=== PATIENT | female | born 1945 | race Caucasian/White ===

== ENCOUNTER 2016-12-13 20:13 | Emergency (ER) | payer MEDICARE ==
[~2016-12-13] VITALS: Ht 167.6 cm; Wt 86.4 kg
--- NOTE | 2016-12-13 20:13 | ED.REPORT ---
HPI-Neurologic Deficit Date of Service Dec 13, 2016 ED Provider: Dr. Jose Alejandro Leo 71 year old female with a history of left sided weakness and short term memory difficulty due to a CVA (September 2015) and brain aneurysm s/p shunt who presents to the ED via EMS with L sided facial droop noted today. Pt's reports that she had a fall yesterday where she landed face first on her forehead. Since then she had balance difficulties and then had another fall today. Pt complains of a mild headache, but denies neck pain. Nursing Notes Stated Complaint: LEFT SIDED WEAKNESS, GROUND LEVEL FALL Chief Complaint: Neuro Symptoms/ Deficits Nursing Notes Reviewed: Yes Allergies: Coded Allergies: Cephalosporins (Verified Allergy, Unknown, 08/21/09) Uncoded Allergies: CECLOR, SULFA (Allergy, Unknown, 04/05/04) Cephalosporins (Allergy, Unknown, 04/05/04) NKDA (Allergy, Unknown, 04/05/04) SULFA (Allergy, Unknown, 08/21/09) Sulfa (Allergy, Unknown, 04/05/04) General Time Seen by Provider: 20:11 Chief Complaint Falling Hx Obtained From: Patient, Spouse, EMS Arrived By: Ambulance Sudden in Onset?: No Onset Occurred: Yesterday Symptom Duration: Since onset Progression Since Onset: Constant Location: : Head Quality: Aching Severity: Current: Mild Associated with: Reports: Balance problem, Headache Related History: Reports: CVA/TIA Similar Sx Previous: Yes Risk Factors TPA Administration/Criteria Stroke Thrombolytic Therapy : TPA Considered: Yes Disc Risk/Benefit/Alternatives: Yes TPA Administered Intravenously: No, exclusion criteria Exclusion Criteria: Suspect subarachnoid hem NIH Stroke Scale Level of Consciousness: Alert and responsive (0) Ask Month & Age: Both questions right (0) Open/Close Eyes/Hand Atmospheric Physics Professor: Performs both tasks (0) Horizontal EO Movements: None (0) Visual Gordon: No visual loss (0) Facial Palsy: Minor paralysis (1) (to R side) Right Arm Motor Drift (10s): No drift 10 sec (0) Left Arm Motor Drift (10s): No drift 10 sec (0) Right Leg Motor Drift (5s): No drift 5 sec (0) Left Leg Motor Drift (5s): No drift 5 sec (0) Limb Ataxia FNF/Heel-Moncada: No ataxia (0) Sensation (Arms/Legs/Face): No sensory loss (0) Language Aphasia: No aphasia, normal (0) Dysarthria: No dysarthria, normal (0) Extinction/Inattention: No exctinct/inattent (0) NIHSS Score: 1 Time NIHSS Performed: 20:24 Date NIHSS Performed: Dec 13, 2016 Past Medical History Past Medical History Notes: PCP: Dr. Oneill Past Medical History nonalcoholic steatohepatitis vitamin D deficiency asthma Brain aneurysm Reports: Hyperlipidemia, Hypertension, Stroke Past Surgical History Brain aneurysm with catheterization Reports: Cholecystectomy, Hysterectomy, Tonsillectomy Smoking History Unknown if Ever Smoker Social History Other Social History: Good social support, , Local resident Ambulatory Status Walker Review of Systems Respiratory: Denies: Shortness of breath Cardiovascular: Denies: Chest pain Musculoskeletal: Denies: Extremity pain, Neck pain Neurologic: Reports: Focal weakness (baseline), Headache, Problem walking, Denies: Change LOC, Unable to speak Complete sys rev & neg: except as marked. Physical Exam Initial Vital Signs Vital Signs (First) Date Time Temp Pulse Resp B/P Pulse Ox O2 Delivery O2 Flow Rate FiO2 12/13/16 20:25 36.2 70 18 145/69 99 Room Air Initial VS: Reviewed ENT: Conjunctiva normal, No scleral icterus Neck: Full range of motion Skin: Warm, Dry General/Constitutional: Awake, Alert Head / Eyes: Atraumatic, Normocephalic, PERRL Respiratory / Chest: Breath sounds NL, Breath sounds = bilat, No respiratory distress, No rales, No rhonchi, No wheezing Cardiovascular: Heart rate NL, Regular rhythm, Heart sounds NL, Peripheral circulation NL Neurologic: Speech NL, No motor deficits, No sensory deficits Mental Status: Positive: Disoriented to place L sided facial droop Interpretation & Diagnostics Lab Results Interpretation Result Diagram: 12/13/16200912/13/162009 Test 12/13/16 20:10 White Blood Count 10.3th/mm3 (3.8-10.1) Red Blood Count 5.41mil/mm3 (3.90-5.20) Hemoglobin 15.8g/dL (12.0-15.6) Hematocrit 45.2% (35.0-46.0) Mean Corpuscular Volume 83.5fL (81-100) Mean Corpuscular Hemoglobin 29.2pg (27.0-35.0) Mean Corpuscular Hemoglobin Concent 35.0% (32.0-37.0) Red Cell Distribution Width 12.6% (12.3-15.4) Platelet Count 289bil/L (150-400) Neutrophils (%) (Auto) 54.4% (40-74) Lymphocytes (%) (Auto) 33.4% (14-46) Monocytes (%) (Auto) 10.5% (4-12) Eosinophils (%) (Auto) 1.1% (0-5) Basophils (%) (Auto) 0.4% (0-3) Prothrombin Time 9.8sec (8.1-12.5) Prothromb Time International Ratio 0.92ratio Activated Partial Thromboplast Time 25.7sec (22.8-33.0) Sodium Level 136mEq/L (134-144) Potassium Level 2.9mEq/L (3.5-5.2) Chloride Level 92mEq/L (97-108) Carbon Dioxide Level 30mmol/L (18-29) Blood Urea Nitrogen 15mg/dL (8-27) Creatinine 0.72mg/dL (0.57-1.00) Estimat Glomerular Filtration Rate 115mL/min (>59) Glucose Level 101mg/dL (60-99) Calcium Level 9.8mg/dL (8.5-10.1) Total Bilirubin 0.2mg/dL (0.0-1.2) Aspartate Amino Transf (AST/SGOT) 16U/L (0-50) Alanine Aminotransferase (ALT/SGPT) 18U/L (0-32) Alkaline Phosphatase 87U/L (25-165) Troponin T < 0.010ug/L (0.0-0.011) Total Protein 7.6g/dL (6.4-8.4) Albumin 4.8g/dL (3.4-5.0) Alcohol, Quantitative < 10mg/dL (0-10) General Lab Results Interp 1: Labs reviewed Pulse Oximetry Interpretation Pulse Oximetry: Pulse Ox normal (99), On room air ECG Interpretation Time: 20:23 Interpreted by: ED physician Normal ECG Interpretation: Normal rate (74), Normal sinus rhythm, No acute ischemic changes CT Head Interpretation 1. Serpiginous area of hyperdensity within the left frontal lobe is most consistent with subarachnoid hemorrhage. 2. Moderate atrophy and chronic microvascular ischemic changes, including a prominent area of old infarction in the right temporoparietal occipital lobe. Study: Head CT no contrast Interpretation / Wet Read by: Interpret - Radiologist CT C-Spine Interpretation Impression: Multilevel degenerative changes without visualized fracture. Study type: CT no contrast Interpretation / Wet Read by: Interpret - Radiologist Re-Eval/Medical Decision Med Decision/Clinical Course 71-year-old female presents as a code stroke. Evidently she suffered a ground- level fall after which she is found have a left facial droop. On my evaluation she is awake and alert. She has a history of dementia and her memory seemed to be at her baseline. Her corroborates this. She does have facial asymmetry with smiling. She has symmetric standard machine stitcher strength bilateral. She did not have a drift in any of her 4 extremities. She is able to recognize items off the stroke scale picture board. Her vitals have been and remained stable CT scan shows a traumatic subarachnoid hemorrhage. Laboratory work showed mild hypokalemia. He was due for her evening dose of Keppra. Medicated with IV fentanyl for the headache pain. Her cervical spine was cleared with CT and clinically. Case discussed with [facility] and she was transferred to [facility] in stable condition. Re-Evaluation/Progress #1: Time of Eval: 20:29 Re-Evaluation/Progress Note: Pt and her updated of imaging results. Discussed possible transfer to [facility]. Re-Evaluation/Progress #2: Time of Eval: 21:19 Re-Evaluation/Progress Note: Pt and family updated of plan for transfer. They understand and agree with plan. Consultation : Referral / Consult Name: Philomena Merrill MD Call Returned at: 20:25 Note: Radiologist- Called with CT results. Differential Diagnosis: Positive: Basilar skull fracture, Cerebrovascular accident, Cervical spine injury, Closed head injury, Intracranial hemorrhage, Skull fracture, Subarachnoid hemorrhage, Transient ischemic attack Severity: Serious condition Comorbidities: Anticoagulation therapy, Disability Counseled Regarding: Diagnosis, Need for transfer Discharge & Departure Impression: Primary Impression: Traumatic subarachnoid hemorrhage Encounter type: initial encounter Loss of consciousness presence/duration: without LOC Qualified Code: S06.6X0A - Traumatic subarachnoid hemorrhage without loss of consciousness, initial encounter Disposition: Transfer, Acute Care Facility Receiving Hospital: Dr. Schaefer from [facility] accepts patient Transfer Accepted: Yes Transfer Accepted at: 21:05 Transfer Reason: Higher level of care Spoke with: Attending physician Patient Status: Stabilized within capabil Patient Informed: Yes Discharge Condition All VS Reviewed: Yes Referrals: Sarahy Gramajo (PCP) Crit Care Except Billable Proc Time Spent: 30-74 minutes Services Performed: Patient management by me, Time spent at bedside, Reviewing test results, Reviewing imaging, Discussing patient care, Documentation in record, Time with fam/surrogate Scribe Attestation Portions of this note were transcribed by Adriana Greenfield. I, (Dr. Leo) personally performed the history, physical exam and medical decision-making; I reviewed and confirmed the accuracy of the information in the transcribed note. Signed by: Adriana Greenfield. Chung, 12/13/16, [id number] copies to: Sarahy Gramajo Todd P DO Dec 13, 2016 20:13 Adriana Greenfield Dec 13, 2016 20:32
[2016-12-13 20:24] LABS: BASOPHILS % (AUTO) 0.4 % (0-3); EOSINOPHILS % (AUTO) 1.1 % (0-5); MONOCYTES % (AUTO) 10.5 % (4-12); Mean Corpuscular Hemoglobin 29.2 pg (27.0-35.0); Mean Corpuscular Volume 83.5 fL (81-100); NEUTROPHILS % (AUTO) 54.4 % (40-74); Platelet Count 289 bil/L (150-400)
[2016-12-13 20:25] VITALS: BP 145/69; PULSE 70; RESP 18; O2SAT 99
[2016-12-13 20:42] LABS: INR 0.92 ratio
[2016-12-13 20:47] LABS: TROPONIN T < 0.010 ug/L (0.0-0.011)
[2016-12-13] MEDS ORDERED: levETIRAcetam 500 mg Tablet PO ONE (21:20)
[2016-12-13] MEDS ORDERED: Potassium Chloride 20 mEq SR Tablet PO ONE (21:20)
[2016-12-13] MEDS ORDERED: fentaNYL-PF 50 mCg/mL 2 mL Inj IVPUSH ONE (21:25)
[2016-12-13] MEDS ORDERED: Ondansetron 2 mg/mL 2 mL Inj IVPUSH PRN (21:25)
[2016-12-13 21:44] VITALS: BP 147/58; PULSE 70; RESP 18; O2SAT 99
--- NOTE | 2016-12-14 15:13 | DRSVH ---
PROCEDURE: CT BRAIN TPA INDICATIONS: Left sided weakness TECHNIQUE: Noncontrast 4.5 mm thick angled axial sections acquired from the foramen magnum to the vertex, with c oronal reformats. COMPARISON: [facility], CT, CT BRAIN WO CON, 02/15/2016, 20:55. FINDINGS: Image quality: Excellent. CSF spaces: Basal cisterns are patent. No extra-axial fluid collections. The ventricles are symmet adis in size and shape. Ventricular shunt is present from a posterior left frontal parietal approach with distal tip in the posterior aspect of the left ventricular frontal horn. Brain: No intracranial masses. There is a serpiginous area of hyperdensity within the left frontal l obe measuring roughly 9 mm in transverse dimension. There is cerebral volume loss for age, with resul tant ventricular and sulcal prominence. There are periventricular and deep white matter chronic smal l vessel ischemic changes. There is intracranial internal carotid artery atherosclerosis. There is a large area of old ischemia within the right temporoparietal occipital lobe. Skull and face: Calvarium and visualized facial bones appear intact, without suspicious lesions. Sinuses: Visualized sinuses demonstrate complete occlusion of the right maxillary sinus with promine nt mucosal thickening in the left maxillary and ethmoid sinuses. IMPRESSION: 1. Serpiginous area of hyperdensity within the left frontal lobe is most consistent with subarachnoid hemorrhage. 2. Moderate atrophy and chronic microvascular ischemic changes, including a prominent area of old inf arction in the right temporoparietal occipital lobe. The above findings were discussed with Dr. Jose Alejandro Leo on 12/13/16 at 8:22 PM. This study fulfills neurological imaging criteria for inclusion or exclusion of acute stroke therapie s based on available published neurological guidelines. Dictated by: Philomena Merrill M.D. on 12/13/2016 at 20:21 Approved by: Philomena Merrill M.D. on 12/13/2016 at 20:27
--- NOTE | 2016-12-14 15:13 | DRSVH ---
PROCEDURE: CT CERVICAL SPINE WITHOUT CONTRAST ([id number]) INDICATIONS: FALL TECHNIQUE: Noncontrast 3 mm thick sections acquired from the skull base to the T4 level. Sagittal and coronal r eformats were then constructed. For radiation dose reduction, the following was used: automated exp osure control, adjustment of mA and/or kV according to patient size. COMPARISON: None. FINDINGS: Image quality: Excellent. Bones: No fractures or dislocations. Visualized superior ribs are intact. Multilevel degenerative changes are present. Soft tissues: Prevertebral soft tissues are normal in thickness. No paravertebral hematomas. No ap ical pneumothoraces. Large right tempoparietal occipital focus of chronic infarction. IMPRESSION: Multilevel degenerative changes without visualized fracture. Dictated by: Philomena Merrill M.D. on 12/13/2016 at 21:01 Approved by: Philomena Merrill M.D. on 12/13/2016 at 21:03
--- NOTE | 2016-12-14 15:13 | DRSVH ---
PROCEDURE: X-RAY CHEST ONE VIEW, PORTABLE ([id number]) INDICATIONS: left sided weakness TECHNIQUE: One view of the chest was acquired. COMPARISON: [facility], CR, XR CHEST 1VW (PORTABLE), 10/20/2015, 16:51. FINDINGS: Surgical changes and devices: Partially visualized presumed left ventricular peritoneal shunt is note d with tubing coursing over the left neck, left hemithorax and into the left abdomen. Lungs and pleura: No pleural effusions or pneumothorax. Lungs are clear. Mediastinum: Mediastinal contours appear normal. Heart size is normal. Bones and chest wall: No suspicious bony lesions. Overlying soft tissues appear unremarkable. IMPRESSION: No acute pulmonary process. Dictated by: Philomena Merrill M.D. on 12/13/2016 at 20:47 Approved by: Philomena Merrill M.D. on 12/13/2016 at 20:48
== END 2016-12-13 21:46 | disposition short-term general hospital (02) ==
LOC: SED 20:13
DX: S06.6X0A Traumatic subarachnoid hemorrhage without loss of consciousness, initial encounter (principal); W18.39XA Other fall on same level, initial encounter; Y93.89 Activity, other specified; Y92.89 Other specified places as the place of occurrence of the external cause; Y99.8 Other external cause status; E87.6 Hypokalemia; I69.998 Other sequelae following unspecified cerebrovascular disease; R41.3 Other amnesia; J45.909 Unspecified asthma, uncomplicated; I10 Essential (primary) hypertension; E78.5 Hyperlipidemia, unspecified; Z98.2 Presence of cerebrospinal fluid drainage device; Z88.1 Allergy status to other antibiotic agents
CPT/HCPCS: 36415; 70450; 71010; 72125; 80053; 84484; 85025; 85610; 85730; 93005; 96374; 96375; 99291; G0480; J2405; J3010

== ENCOUNTER 2017-01-06 12:34 | Observation (INO) | payer MEDICARE ==
[~2017-01-06] VITALS: Ht 165.1 cm; Wt 85.8 kg
--- NOTE | 2017-01-06 12:27 | ED.REPORT ---
HPI-Stroke / CVA Jan 06, 2017 ED Provider: The patient is a 71 year old female with history of hypertension, hyperlipidemia , brain aneurysm s/p catheterization, right MCA stroke, and recent traumatic subarachnoid hemorrhage, who presents to the emergency department by EMS for left-sided weakness that began at [id number] this morning. The patient states she was washing her face when she noticed numbness/tingling to the left side of her body. She thought she was going to fall to the ground but she was able to lower herself to the ground. Her states when he found her she was shaking, weak on the left side, and was totally unresponsive. When medics arrived they noticed the patient had diffuse left-sided weakness. Her symptoms have improved since onset. Her states she was hospitalized at [facility] for a subarachnoid hemorrhage in September 2015. From our records she was seen here on December 13 and transferred to [facility] for a traumatic subarachnoid hemorrhage. Her states she has mild left-sided weakness at baseline. She is not on any blood thinners. She was recently weened off of her seizure medication (Keppra). Her last dose was a few days ago. Nursing Notes Stated Complaint: R/O CVA Nursing Notes Reviewed: Yes Allergies: Coded Allergies: Cephalosporins (Verified Allergy, Unknown, 08/21/09) Uncoded Allergies: CECLOR, SULFA (Allergy, Unknown, 04/05/04) Sulfa (Allergy, Unknown, 04/05/04) General Time Seen by Provider: 12:42 Chief Complaint Weakness, Numbness Left-sided Hx Obtained From: Patient, Spouse, Other family..., EMS Arrived By: Ambulance Time last known well Prior to 1135 this morning Sudden in Onset?: Yes Symptom Duration: Since onset Progression Since Onset: Constant, Gradually improving Severity: Current: No pain currently Severity: Maximum: No pain Pertinent Negative: Pt denies other symptoms Recent Healthcare: Recent doctor visit, Recent hospitalization Similar Sx Previous: Yes Risk Factors )( TPA Administration/Criteria Stroke Thrombolytic Therapy : TPA Considered: Yes TPA Administered Intravenously: No, exclusion criteria Exclusion Criteria: Sig head trauma / 90 days NIH Stroke Scale Level of Consciousness: Alert and responsive (0) Ask Month & Age: Both questions right (0) Open/Close Eyes/Hand Recreation Counselor: Performs both tasks (0) Horizontal EO Movements: None (0) Visual Gordon: No visual loss (0) Facial Palsy: Minor paralysis (1) (very subtle right-sided facial droop at the corner of her mouth, reports this is baseline) Right Arm Motor Drift (10s): No drift 10 sec (0) Left Arm Motor Drift (10s): No drift 10 sec (0) Right Leg Motor Drift (5s): No drift 5 sec (0) Left Leg Motor Drift (5s): Drift, not touch bed (1) Limb Ataxia FNF/Heel-Moncada: Ataxia in 1 limb (1) Sensation (Arms/Legs/Face): No sensory loss (0) Language Aphasia: No aphasia, normal (0) Dysarthria: No dysarthria, normal (0) Extinction/Inattention: No exctinct/inattent (0) NIHSS Score: 3 Time NIHSS Performed: 12:44 Date NIHSS Performed: Jan 06, 2017 Past Medical History Past Medical History Notes: PCP: Dr. Oneill Past Medical History Nonalcoholic steatohepatitis Vitamin D deficiency Asthma Brain aneurysm Traumatic subarachnoid hemorrhage Reports: Hyperlipidemia, Hypertension, Stroke Past Surgical History Brain aneurysm with catheterization Reports: Cholecystectomy, Hysterectomy, Tonsillectomy Family History Noncontributory Smoking History Unknown if Ever Smoker Social History Other Social History: Good social support, , Local resident Ambulatory Status Walker Review of Systems Neurologic: Reports: Change LOC, Focal weakness, Numbness, Problem walking, Shaking, Unable to speak, Weakness Complete sys rev & neg: except as marked. Physical Exam Initial Vital Signs Vital Signs (First) Date Time Temp Pulse Resp B/P Pulse Ox O2 Delivery O2 Flow Rate FiO2 01/06/17 12:50 36.2 106 13 172/78 97 Room Air Initial VS: Reviewed ENT: Mucous membranes moist, Conjunctiva normal, No scleral icterus Abdomen / GI: Soft, Non-tender, No guarding, No rebound, No distention Lymphatic: No lymphadenopathy Extremities: Vascular intact, Neuro intact, No swelling, No tenderness Skin: Warm, Dry, No cyanosis Psychiatric: Mood/affect normal, Behavior normal, Normal thought content General/Constitutional: Awake, Alert, Cooperative Head / Eyes: Atraumatic, Normocephalic, PERRL, EOMI Neck: Atraumatic, Supple, Full range of motion, No swelling, Non-tender, No midline vertebral tend, No carotid bruit Respiratory / Chest: Atraumatic, Breath sounds NL, Breath sounds = bilat, No respiratory distress, No rales, No rhonchi, No wheezing Cardiovascular: Heart rate NL, Regular rhythm, Heart sounds NL, No murmurs, No rubs, Peripheral circulation NL Neurologic: Oriented X3, Speech NL LLE: 4/5 hip flexion ,4/5 dorsiflexion. Entire RLE has 5/5 strength. 5/5 strength to both upper extremities. Very subtle right-sided facial droop at the corner of the mouth but her states this is baseline for her. Otherwise CNII-XII are intact. Dysmetria with finger to nose on the left. Left-sided pronator drift. Interpretation & Diagnostics Lab Results Interpretation Result Diagram: 01/06/17 1225 01/06/17 1225 Test 01/06/17 12:25 White Blood Count 6.7th/mm3 (3.8-10.1) Red Blood Count 5.45mil/mm3 (3.90-5.20) Hemoglobin 15.8g/dL (12.0-15.6) Hematocrit 45.2% (35.0-46.0) Mean Corpuscular Volume 82.9fL (81-100) Mean Corpuscular Hemoglobin 29.0pg (27.0-35.0) Mean Corpuscular Hemoglobin Concent 35.0% (32.0-37.0) Red Cell Distribution Width 12.7% (12.3-15.4) Platelet Count 347bil/L (150-400) Neutrophils (%) (Auto) 53.3% (40-74) Lymphocytes (%) (Auto) 35.4% (14-46) Monocytes (%) (Auto) 9.4% (4-12) Eosinophils (%) (Auto) 1.0% (0-5) Basophils (%) (Auto) 0.6% (0-3) Prothrombin Time 10.0sec (8.1-12.5) Prothromb Time International Ratio 0.94ratio Activated Partial Thromboplast Time 24.3sec (22.8-33.0) Sodium Level 141mEq/L (134-144) Potassium Level 2.7mEq/L (3.5-5.2) Chloride Level 94mEq/L (97-108) Carbon Dioxide Level 20mmol/L (18-29) Blood Urea Nitrogen 9mg/dL (8-27) Creatinine 0.76mg/dL (0.57-1.00) Estimat Glomerular Filtration Rate 108mL/min (>59) Glucose Level 113mg/dL (60-99) Calcium Level 10.0mg/dL (8.5-10.1) Total Bilirubin 0.3mg/dL (0.0-1.2) Aspartate Amino Transf (AST/SGOT) 18U/L (0-50) Alanine Aminotransferase (ALT/SGPT) 19U/L (0-32) Alkaline Phosphatase 134U/L (25-165) Troponin T < 0.010ug/L (0.0-0.011) Total Protein 7.8g/dL (6.4-8.4) Albumin 4.7g/dL (3.4-5.0) CT Head Interpretation IMPRESSION: 1. No acute intracranial abnormalities status post right aneurysm clipping. 2. Large nonacute infarct in the right posterior cerebral artery distribution as before. 3. Mild periventricular and deep white matter chronic small vessel ischemic change. 4. Findings consistent with right maxillary sinusitis, with central hyperdensity consistent with inspissated secretions versus fungal sinusitis. Findings were discussed with Dr. Tai at 1255 hrs on January 06, 2017. This study fulfills neurological imaging criteria for inclusion or exclusion of acute stroke therapies based on available published neurological guidelines. Dictated by: Juan Lamb M.D. on 01/06/2017 at 12:49 Study: Head CT no contrast Interpretation / Wet Read by: Interpret - Radiologist, Discussed w radiologist Re-Eval/Medical Decision Med Decision/Clinical Course The patient is a 71-year-old female with history of right MCA stroke and residual left-sided deficits, rheumatic subarachnoid hemorrhage and underlying seizure disorder for which she has recently been weaned off of Keppra who presents to the emergency department with acute onset of left-sided weakness in the setting of seizure-like episode. Here in the emergency department the patient is mentating normally and speaking in full sentences. Examination reveals a very subtle left sided weakness and pronator drift which the patient' s states is baseline. He states that the patient near complete recovery from her left-sided weakness that occurred after what appeared to be total body shaking/seizure during which she was non-responsive. She has not stuck her head. CT scan was obtained as above and demonstrated no acute intracranial hemorrhage but previous right MCA stroke/changes consistent with previous craniotomy were observed. LABS: CBC unremarkable, CMP notable for hypokalemia with a K of 2.7, otherwise unremarkable, glucose 113, troponin negative, coag studies WNL Pt treated with IV and oral potassium given significant hypokalemia as above. Additionally, the patient was loaded on 1000 mg of IV Keppra given presumed seizure event. Cannot definitively rule out acute ischemic stroke at this time however the onset and association with seizure and rapid resolution of symptoms is less suggestive of an acute ischemic process. MRI has been ordered to definitively assess for acute ischemic stroke. Regardless, the patient is not a candidate for TPA given her history of intracranial hemorrhage and rapidly resolving symptoms. Patient without fever or meningismus and my suspicion for meningitis/colitis is very low. We are cleaning the patient's Lexxel and abnormalities however I find it unlikely that these would explain her presentation today. Patient discussed with neurology and they are in agreement with plan for loading with Keppra and MRI. Patient was discussed with the admitting hospitalist and transferred in stable condition for further workup and management. Source of Hx: Old records, EMS Re-Evaluation/Progress : Time of Eval: 13:10 Re-Evaluation/Progress Note: Discussed plan for admission. All questions were addressed. Consultation #1: Referral / Consult Name: Hugo Calvert Consulted With: Hospitalist Call Returned at: 13:21 C 13 Catapult Operator: Will see patient, Agrees with eval, Agrees with plan, Accepts admit Consultation #2: Referral / Consult Name: Bhargavi Stanley MD Consulted With: Neurology Call Returned at: 13:26 C 13 Catapult Operator: Will see patient, Agrees with eval, Agrees with plan Counseled Regarding: Diagnosis, Lab results, Need for admission Patient Discharge & Departure Impression: Primary Impression: Seizure Additional Impressions: Left-sided weakness History of right MCA stroke History of subarachnoid hemorrhage History of craniotomy Hypokalemia Disposition: ADMITTED TO HOSPITAL Discharge Condition All VS Reviewed: Yes Condition: Stable Referrals: Didier Doss MD (PCP) Crit Care Except Billable Proc Time Spent: 105-134 minutes Services Performed: Patient management by me, Time spent at bedside, Reviewing test results, Reviewing imaging, Discussing patient care, Documentation in record Scribe Attestation Portions of this note were transcribed by Michelle Wood. I, Dr. Tai personally performed the history, physical exam and medical decision-making; I reviewed and confirmed the accuracy of the information in the transcribed note. Signed by: Chung Storey, 01/06/2017 at 1400. copies to: Didier Doss MD, Beck O MD Jan 06, 2017 12:27 Michelle Wood Jan 06, 2017 12:32
[2017-01-06 12:47] LABS: BASOPHILS % (AUTO) 0.6 % (0-3); MONOCYTES % (AUTO) 9.4 % (4-12); Mean Corpuscular Volume 82.9 fL (81-100); NEUTROPHILS % (AUTO) 53.3 % (40-74); Platelet Count 347 bil/L (150-400)
[2017-01-06 12:50] VITALS: BP 172/78; PULSE 106; RESP 13; O2SAT 97
[2017-01-06] MEDS ORDERED: levETIRAcetam Inj 1,000 MG in IV Premix 1 EACH IV ONE (12:55)
--- NOTE | 2017-01-06 12:57 | DRSVH ---
PROCEDURE: CT BRAIN (TPA) ([id number]) INDICATIONS: 71 year-old female with slurred speech, recent brain surgery. TECHNIQUE: Noncontrast 4.5 mm thick angled axial sections acquired from the foramen magnum to the vertex, with c oronal reformats. COMPARISON: [facility], CT, CT BRAIN TPA, 12/13/2016, 20:17. [facility], CT, CT BRAIN WO CON, 02/15/2016, 20:55. [facility], CT, BRAIN (TPA), 10/20/2015, 16:10. FINDINGS: Image quality: Excellent. CSF spaces: Basal cisterns are patent. No extra-axial fluid collections. The ventricles are symmet adsi in size and shape. Right parietal lobe ventricular shunt is again noted, with tip within the left lateral ventricle body as before. Brain: No intracranial bleeds or masses. Large nonacute right occipital and medial right temporal lo be infarct is again noted. Patient is status post right aneurysm clipping in the medial right sylvian fissure. There are mild periventricular and deep white matter chronic small vessel ischemic changes. There is intracranial internal carotid artery atherosclerosis. Skull and face: Patient is status post right frontal and parietal craniotomy as before. Visualized fa cial bones appear intact, without suspicious lesions. Sinuses: There is persistent heterogeneous opacification of the right maxillary sinus, with internal hyperdensity. There is patchy right ethmoid air cell fluid. Other visualized sinuses and mastoids edison ear clear. IMPRESSION: 1. No acute intracranial abnormalities status post right aneurysm clipping. 2. Large nonacute infarct in the right posterior cerebral artery distribution as before. 3. Mild periventricular and deep white matter chronic small vessel ischemic change. 4. Findings consistent with right maxillary sinusitis, with central hyperdensity consistent with insp issated secretions versus fungal sinusitis. Findings were discussed with Dr. Tai at 1255 hrs on January 06, 2017. This study fulfills neurological imaging criteria for inclusion or exclusion of acute stroke therapie s based on available published neurological guidelines. Dictated by: Juan Lamb M.D. on 01/06/2017 at 12:49 Approved by: Juan Lamb M.D. on 01/06/2017 at 12:56
[2017-01-06 13:04] VITALS: BP 136/60; PULSE 98; RESP 18; O2SAT 94
[2017-01-06 13:08] LABS: INR 0.94 ratio
[2017-01-06 13:17] LABS: TROPONIN T < 0.010 ug/L (0.0-0.011)
[2017-01-06] MEDS ORDERED: Alum-Mag Hydrox-Simeth 30 mL Suspension PO PRN ×2 (13:25→14:55)
[2017-01-06] MEDS ORDERED: Ondansetron 2 mg/mL 2 mL Inj IVPUSH PRN (13:25)
[2017-01-06] MEDS ORDERED: Potassium Chloride 20 mEq SR Tablet PO ONE (13:35)
[2017-01-06] MEDS ORDERED: LORazepam 0.5 mg Tablet PO ONE (14:00)
--- NOTE | 2017-01-06 14:22 | NUR ---
Evaluation completed. Please go to "Notes" then click on "Assessments and Notes" (bottom left corner of screen). Then select appropriate discipline tab on top of screen.
[2017-01-06] MEDS ORDERED: Ondansetron 2 mg/mL 2 mL Inj IV PRN (14:55)
[2017-01-06] MEDS ORDERED: Polyethylene Glycol (PEG) 17 Gm Powder PO PRN (14:55)
[2017-01-06] MEDS ORDERED: POTA10CA42 PO (15:15)
[2017-01-06] MEDS ORDERED: HYG25 PO (15:15)
[2017-01-06] MEDS ORDERED: AMLO5TAB2 PO (15:15)
[2017-01-06] MEDS ORDERED: ACET-171 PO (15:15)
[2017-01-06] MEDS ORDERED: NORT10CA PO (15:15)
[2017-01-06] MEDS ORDERED: FLUO10CA20 PO (15:15)
[2017-01-06] MEDS: Potassium Chloride Inj 40 MEQ in Dextrose 5% 250 ML IV ONE ×2 (15:26→19:36)
--- NOTE | 2017-01-06 15:30 | PCM.HPMED ---
Subjective Date of Service Jan 06, 2017 Primary Provider: Admitting Physician: Hugo Calvert Primary Care Physician: Didier Doss MD Attending Physician: Hugo Calvert Admit Status: From the Emergency Department Chief Complaint: "tingling at the top of my head" History of Present Illness: Ms. Jessy Weston is a 71-year-old female with history of hypertension, hyperlipidemia, brain aneurysm status post catheterization and right MCA ischemic stroke, and traumatic subarachnoid hemorrhage who presented to the emergency department via EMS after she felt tingling on the top of her head and her witnessed her having a "seizure." Patient states that this morning after she brushed her teeth and washed her face she could feel a tingling on the top of her head, which is exactly what happened prior to her fall 3 weeks ago, so she decided to lower herself to the floor in order to avoid falling a second time. The next thing that she remembers is waking up to her saying her name and seeing the [employer] supervisor in the ambulance. She also states that last night her left calf was cramping and she describes it as her left leg swelling and being "hard" and feeling "like something pushes against my muscle. " Prior to her fall 3 weeks ago, she said she felt the pain in her leg as well. Her states that he had been in to find the patient on the ground with her eyes rolled back, her whole body was shaking, and she was unresponsive. She did not have bowel or bladder incontinence. She did not hit her head. He reports that the patient has not had a seizure before. She was started on anti-epileptic medication to prevent her having seizures after the initial brain aneurysm and ischemic stroke. She started weaning off of Keppra and took her last dose on Thursday. She reports urinary frequency and depression and anxiety. She reports since the initial brain aneurysm that she cries easily. She does not have headache, dizziness, changes in her vision, dysphagia, chest pain, shortness of breath, cough, nausea, vomiting, abdominal pain, dysuria, diarrhea, constipation, or hematochezia or melena. In September 2015, she collapsed and was unresponsive, and she ended up going to [facility]. She had a brain aneurysm. Her reports that when she was in surgery for the brain aneurysm the surgeon had clipped the artery beneath the bleeding artery, which caused the ischemic right-sided stroke. She was then in the intensive care unit for 5 weeks, and then stayed in a care facility for 5 months for continued rehabilitation. The patient's baseline is walking with a walker, mild left sided weakness, and being partially blind. She has lost her left visual field completely and spots of her right visual field. Since the initial brain aneurysm and stroke, she has had one TIA. Three weeks ago, she fell and hit her head face first off of the wall. She came here to the emergency department where a minor subarachnoid hemorrhage was visualized, and she was sent to [facility]. She was there for a few days where they monitored the hemorrhage, but she did not undergo any intervention. In the emergency department, CT scan showed no acute intracranial changes. She is not a candidate for TPA because of her head trauma within the last 90 days. Her NIH stroke scale score was 3. She was given a loading dose of 1000 mg of IV Keppra. Her potassium was low at 2.7. She was given 10 mEq of potassium chloride IV. Dr. Stanley was consulted. Review of Systems: A comprehensive review of systems was conducted with the patient and found to be negative except as above in the History of Present Illness. Allergies Coded Allergies: Sulfa (Sulfonamide Antibiotics) (Verified Allergy, Severe, Rash,Itching,, 01/06/17) atenolol (Verified Allergy, Severe, Shortness of Breath, 01/06/17) Cephalosporins (Verified Allergy, Unknown, 08/21/09) Uncoded Allergies: CECLOR, SULFA (Allergy, Unknown, 04/05/04) Sulfa (Allergy, Unknown, 04/05/04) Home Medications Jessy Weston. [id number] 1945 12/23/2016 11:40 AM 10/31 Medication Name Directions Acetaminophen Extra Strength 500 mg tablet take 1-2 tablet by oral route every day as needed for headaches and muscle aches chlorthalidone 25 mg tablet take 1 tablet by oral route every day Durable Medical Equipment parking permit-walking severely limited due to arthritis, neurological, or orthopedic condition fluoxetine 10 mg capsule take 1 capsule by oral route every day levETIRAcetam 500 MG TABLET TAKE ONE TABLET BY MOUTH TWICE A DAY nortriptyline 10 mg capsule take 1 Tablet by oral route every day for Chronic Headache Norvasc 5 mg tablet TAKE ONE AND ONE-HALF TABLETS BY MOUTH ONCE DAILY Norvasc 5 mg tablet TAKE ONE TABLETS BY MOUTH ONCE DAILY potassium chloride ER 10 mEq capsule,extended release take 1 capsule by oral route every day with food Patient stopped levetiracetam on Thursday. PMH Brain aneurysm status post clip placement and right MCA ischemia in September 2015 Traumatic subarachnoid hemorrhage 3 weeks ago Hypertension Hyperlipidemia Gastric ulcer Surgical History Cholecystectomy Hysterectomy Tonsillectomy Family History Father had an aneurysm and as a result of complications from a DVT and a PE. Social History Hx Alcohol Use: No Hx Substance Use: No Hx Tobacco Use: No Smoking Status: Never Smoker Living Arrangement: with Family Exam Vital Signs Vital Sign - Last Date Time Temp Pulse Resp B/P Pulse Ox O2 Delivery O2 Flow Rate FiO2 01/06/17 13:04 98 18 136/60 94 Room Air 01/06/17 12:50 36.2 Exam General: No acute distress, well-developed, well-nourished, appropriately interactive HEENT: Subtle right droop at corner of mouth (reported as chronic). Normocephalic, atraumatic. External ears without defect. Pupils equal, round, and reactive to light and accommodation. Anicteric sclerae, moist conjunctivae , and no lid lag. Oropharynx with moist mucosa. Tongue is midline. Neck: Supple with full range of motion. No jugular venous distension. No bruits. No lymphadenopathy or thyromegaly. Cardiovascular: Regular rate and rhythm with no murmurs, rubs, or gallops appreciated Pulmonary: Clear to auscultation bilaterally with no crackles, wheezes, or rhonchi. Normal respiratory effort with no use of accessory muscles. Abdomen: Bowel tones present. Soft, nontender, nondistended. No hepatosplenomegaly or masses appreciated. Extremities: Tenderness to palpation of left calf. No clubbing, cyanosis, edema , or lymphadenopathy appreciated. Skin: Normal temperature, turgor, and texture; no rash, ulcers, or subcutaneous nodules appreciated. Neurological: Cranial nerves grossly intact. Normal muscle strength, tone, and bulk. No known gait impairment. Psychiatric: Normal mood and affect. Alert and oriented to person, place, and time. Lab and Diagnostics Result Diagram: 01/06/17 1225 01/06/17 1225 X-Rays, CTs and MRIs PROCEDURE: CT BRAIN (TPA) IMPRESSION: 1. No acute intracranial abnormalities status post right aneurysm clipping. 2. Large nonacute infarct in the right posterior cerebral artery distribution as before. 3. Mild periventricular and deep white matter chronic small vessel ischemic change. 4. Findings consistent with right maxillary sinusitis, with central hyperdensity consistent with inspissated secretions versus fungal sinusitis. Findings were discussed with Dr. Tai at 1255 hrs on January 06, 2017. This study fulfills neurological imaging criteria for inclusion or exclusion of acute stroke therapies based on available published neurological guidelines. Approved by: Juan Lamb M.D. on 01/06/2017 at 12:56 12-lead ECG Sinus rhythm, no concerning ST segment changes Assessment & Plan Ms. Jessy Weston is a 71-year-old female with history of hypertension, hyperlipidemia, brain aneurysm status post catheterization and right MCA ischemic stroke, and traumatic subarachnoid hemorrhage who presented to the emergency department via EMS after she felt tingling on the top of her head and her witnessed her having a "seizure." 1. Probable seizure activity, acute, present on admission. Active. -Patient's reports seizure-like episode and patient stopped taking Keppra on Thursday morning. -DDx includes but not limited to: seizure disorder secondary to previous brain aneurysm and ischemia, acute intracranial ischemia, transient ischemic attack, meningitis, hypomagnesium, hyperthyroidism, hypoglycemia, or hypoxia. -Patient does not have a headache or neck pain. She does not have a fever or an elevated WBC. Her magnesium, sodium, and TSH are within normal limits. Glucose was only mildly elevated. She has not had any episodes of oxygen desaturation. -CT scan did not show any acute intracranial changes -Patient given a loading dose of Keppra 1000 mg IV in the emergency department -Hold home anti-hypertensives -PT, OT, and ST evaluations ordered. Their time and recommendations are appreciated. -MRI stroke protocol ordered for further assessment -Neurology consulted and following. Their time and recommendations are appreciated. -Keppra 1000 mg IV BID -Seizure precautions in place 2. Hypokalemia, acute, present on admission. Active. -Potassium 2.7 in the emergency department and replenished with 10 meq IV -Magnesium within normal limits -Additional 40 meq potassium chloride IV ordered -Repeat BMP this evening -Continue to monitor and replenish as needed 3. Bilateral leg cramping, worse in the left leg, recurrent, present on admission. Active. -Likely related to potassium level above -US duplex venous did not show DVT but incidental finding of Manriquez's cyst on the right -Acetaminophen as needed for pain 4. History of traumatic subarachnoid hemorrhage -Patient and her report a fall 3 weeks ago that lead to a small subarachnoid hemorrhage. She experienced similar symptoms to prior to today's episode. -She did not receive any intervention 5. History of brain aneurysm and right MCA ischemia -S/p clip placement in September 2015 6. Hypertension, chronic. -Hold patient's home medications for now -Continue to monitor 7. Depression and anxiety, chronic. -Continue patient's home fluoxetine and nortriptyline 8. Hyperlipidemia, chronic. -Patient is not taking any medication for hyperlipidemia at home Acetaminophen as needed for pain. Zofran as needed for nausea/vomiting. Senna and Miralax as needed for constipation. Patient's PCP is Dr. Doss. VTE Prophylaxis Indicated: Contraindicated (subarachnoid hemorrhage 3-4 weeks ago) VTE Mechanical Devices: Intermittant Pneumatic CD Resuscitation Status: CPR: Attempt Resuscitation Attending Statement The patient was seen and examined together with Dr. Cotton on 01/06/17 and I agree with the history, exam and plan as outlined in the note above. Bailey Cotton DO Jan 06, 2017 15:30 Hugo Calvert Jan 07, 2017 07:39
[2017-01-06 15:49] VITALS: BP 136/80; PULSE 96; RESP 16; O2SAT 93
[2017-01-06 16:11] VITALS: PULSE 94
--- NOTE | 2017-01-06 16:45 | DRSVH ---
PROCEDURE: US VENOUS LEG DUPLEX BILATERAL INDICATIONS: leg cramping TECHNIQUE: Real-time imaging, as well as color and pulse Doppler interrogation, were performed of the deep veins of both legs from the inguinal ligament to the popliteal fossa. COMPARISON: None. FINDINGS: The deep veins are normally compressible, and free of intraluminal thrombus. Color and pu lse Doppler demonstrate normal phasic intravascular flow. There is normal augmentation response to d istal compression maneuver. Right popliteal Manriquez's cyst. IMPRESSION: No deep venous thrombosis identified within either the left or right lower extremities. Incidental finding of right popliteal Manriquez's cyst measuring roughly 32 mm Dictated by: Vahe Rose [facility] Interpreted: Philomena Merrill MD on 01/06/2017 at 16:44 Transcribed by: OBEY on 01/06/2017 at 16:44 Approved by: Philomena Merrill M.D. on 01/08/2017 at 21:49
[2017-01-06 17:17] LABS: APPEARANCE,URINE CLEAR (CLEAR,HAZY); COLOR,URINE YELLOW (YELLOW); OCCULT BLOOD,URINE NEGATIVE (NEGATIVE); PH,URINE 7.5 (5.0-8.0); UROBILINOGEN,URINE NORMAL (NORMAL)
--- NOTE | 2017-01-06 19:42 | DRSVH ---
PROCEDURE: MRI STROKE PROTOCOL ([id number]) Pre- and post-contrast brain MRI, non-contrast brain MR angiogram, pre- and postcontrast neck MR matty ogram INDICATIONS: 71 year-old female with seizure and stroke. TECHNIQUE: Brain: Noncontrast axial T1 spin echo, axial T2 fast spin echo, sagittal and axial FLAIR, coronal T2 fast spin echo, axial gradient echo, axial diffusion and ADC through the brain. After the administr ation of contrast, axial 3D VIBE of the cranial vasculature and brain. Brain MRA: Non-contrast 3-D time of flight MR angiogram, with multiple ezufhyt-dbhxcqcjx-qangzqkrlu (MIP) reformats performed. Neck MRA: Axial and sagittal TruFISP through the neck. Coronal dynamic MR angiogram during administ ration of contrast in the arterial and venous phases, with 3-dimenstional jnranpa-tgaspdugb-ctsfrkkpq n (MIP) reformats constructed from subtraction images. COMPARISON: [facility], CT, BRAIN (TPA), 01/06/2017, 12:38. FINDINGS: Image quality: Multiple sequences are degraded by patient motion. Left parietal lobe is distorted by metallic susceptibility artifact from overlying ventricular shunt reservoir. BRAIN: CSF spaces: Ventricles are normal in size and shape. Basal cisterns are patent. No extra-axial flu id collections. Left ventricular shunt is again noted. Brain: No intracranial bleeds or mass effects. There is moderate periventricular white matter chroni c small vessel ischemic change. Diffusion weighted images show no acute ischemic insults. Large non acute infarct is again noted involving the right occipital and medial temporal lobes. Brainstem appea rs normal. Normal intravascular flow voids are present. No abnormal intracranial enhancement. Skull and face: Calvarial marrow signal is normal. Orbits appear normal. Sinuses: There is asymmetric opacification of the right maxillary sinus as before, with expansion of the right ostiomeatal complex. There is patchy right ethmoid air cell fluid and mucosal thickening as well. Other sinuses and mastoids appear clear. BRAIN MR ANGIOGRAM: Anterior circulation: Intracranial internal carotid arteries are normal in size and enhancement. Th e right cavernous internal carotid artery is obscured by nearby aneurysm clip. The flow within the pa ired anterior cerebral arteries is normal and symmetric. The flow within the middle cerebral arterie s is normal and symmetric. The anterior communicating artery is seen. No stenoses, occlusions, or a neurysms. Posterior circulation: The visualized portions of the vertebral arteries demonstrate normal caliber, and join to form a normal appearing basilar artery. There is asymmetric occlusion of the right poste rior cerebral artery. No stenoses or aneurysms. NECK MR ANGIOGRAM: Carotids: Great vessels demonstrate a conventional anatomy as they arise from the aortic arch. The origins of the common carotid arteries appear patent. The calibers and courses of both common caroti d arteries are normal. The bifurcation regions appear normal bilaterally. The internal carotid katie indira demonstrate normal course and caliber. Posterior circulation: The origins of the codominant vertebral arteries appear patent. More superio r portions of both vertebral arteries demonstrate normal course and caliber, and join to form a aixa l appearing basilar artery. Miscellaneous: Subclavian arteries appear patent. Pre-contrast images through the neck show no soft tissue abnormalities. Sagittal images demonstrate C7-T1 syrinx within the spinal cord. IMPRESSION: BRAIN MRI: 1. Limited examination secondary to motion artifact and metallic susceptibility artifact. 2. Large nonacute infarct in the right posterior cerebral artery distribution as before. 3. Asymmetric right maxillary sinus opacification with expansion of the ostiomeatal complex, consiste nt with antrochoanal polyp. BRAIN MR ANGIOGRAM: 1. Asymmetric occlusion of the right posterior cerebral artery corresponds with large nonacute infarc t. 2. Portions of the right cavernous internal carotid artery obscured by nearby aneurysm clip artifact. NECK MR ANGIOGRAM: 1. No hemodynamically significant lesions identified of the extracranial neck vasculature. 2. 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 Consider further evaluation with none mergent pre-and post contrast cervical spine MRI when clinically feasible. The estimate of stenosis included in the report of the imaging study was calculated using the NASCET method Dictated by: Juan Lamb M.D. on 01/06/2017 at 19:27 Approved by: Juan Lamb M.D. on 01/06/2017 at 19:41
[2017-01-06 20:00] VITALS: PULSE 79
[2017-01-06 20:51] VITALS: BP 134/76; PULSE 82; RESP 16; O2SAT 94
--- NOTE | 2017-01-06 21:07 | CONS ---
[address] [address] CONSULTATION REPORT PATIENT: MARIANO HANNA : 1945 MR#: [id number] ADMIT: 01/06/2017 JOB ID: [id number] DATE OF SERVICE: 01/06/2017 REQUESTING PHYSICIAN: Dr. Cotton for new onset seizures. 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 Johnnie Sullivan at [facility]. His note from December 19, 2015, is located in the [facility] notes. He is followed by Dr. Didier Doss at [facility]. The patient has been on prophylactic Keppra 500 mg two times daily since the event in 2014. Dr. Sullivan was planning to do a repeat cerebral angiography in 18 months, according to his note. On December 15, 2016, the patient had a tiny superior left frontal subarachnoid hemorrhage following a fall. The patient reports that she had an episode of dizziness before falling forward. Her , Manuel, is here at the bedside and is able to provide the details she does not recall. He states that she fell face forward. She was observed at the [facility], [facility], and discharged home after interim stability clinically by CT was observed. At that time, CT angio was completed with no new findings and interim stability of the right PCOM aneurysm with no residual filling of the aneurysm. No hemodynamically significant stenosis was seen. Transthoracic echocardiogram showed normal LV size. No evidence of shunt. The size of atria was not reported. EEG completed on December 14, 2016, showed slowing over the right parietotemporal head region which indicated an area of focal cerebral dysfunction, but no epileptiform abnormalities were seen. Orthostatic blood pressure did not reveal any orthostatic hypotension. In fact, blood pressure was mildly elevated. Notes from [facility] suggest hypokalemia. However, the exact number was not seen in the discharge note. It was hypothesized that this led to muscle weakness and fall. No evidence to suggest arrhythmia during monitoring. Chlorthalidone was thought possibly to be responsible for the patient's low potassium. She was discontinued on chlorthalidone, given potassium replacement. It was also recommended that she discontinue antiepileptic medications, Keppra, per her , and she was slowly tapered off. She reportedly has never had a seizure and medications were prescribed for prophylaxis only. This morning, the patient advises me that she felt dizzy again. She said to herself, "Oh no, here I go again," and sat on the floor. Her observed this and then observed her eyes roll back into her head and she proceeded to have a generalized tonic-clonic seizure lasting for several minutes. She was transported to [facility] where she was evaluated by emergency department staff. I was called by Dr. Tai, who requested a neurology consultation. He had already loaded the patient with levetiracetam. At that time, he was under the impression that the patient had a stroke in the past. I recommended an MRI of the brain. That has been completed and I personally reviewed it on the PACS system. Although it is not yet formally reported, there is no evidence of acute stroke or hemorrhage. There is considerable metal artifact, which at times obscures the recording. Extensive encephalomalacia as seen on the head CT is once again demonstrated on the right. Also noted is the patient's SECONDARY SPECIAL EDUCATION TEACHER shunt and white matter changes. This patient's reports that she was quite weak on her left side but that has gradually been improving through the day. She feels fatigued but otherwise is feeling well. The patient's reports that she has extreme short-term memory problems since her P- comm aneurysm. Also noted in the [facility] chart is depression with easy tearfulness. The patient ambulates at home, occasionally using a walker as needed. Also noted was mild impairment in vision. Her has health problems which have also caused mild disability. However, he remains quite supportive with a strong supportive family. I recommended to Dr. Cotton that the patient continue levetiracetam at 1000 mg two times daily. The patient currently is on telemetry monitoring without arrhythmias and no additional seizures have been observed. Reviewing laboratory studies shows hypokalemia with potassium at 2.7, now corrected to 3.0. Mildly elevated glucose at 113. Troponins normal. CBC with normal white count, slightly elevated RBCs and hemoglobin. UA negative. PAST MEDICAL HISTORY: As per the history of present illness. Hypertension, cholecystectomy, partial hysterectomy, and oophorectomy. Peptic ulcer disease. SOCIAL HISTORY: She lives with her , Manuel, with a strong family support system as above. FAMILY HISTORY: Father from a ruptured cerebral aneurysm. She has a brother with depression who committed suicide last year. DRUG ALLERGIES: 1. CEPHALOSPORIN. 2. SULFA. 3. CECLOR. MEDICATIONS: 1. Fluoxetine. 2. Nortriptyline. 3. Levetiracetam 1000 mg two times daily PRNS: None given except lorazepam for the MRI. REVIEW OF SYSTEMS: Patient feels fatigued. She felt nauseated earlier. Otherwise, as per the history of present illness. All other systems reviewed and reported as negative. PHYSICAL EXAMINATION: Blood pressure 136/80, pulse oximetry 93% on room air. Temperature afebrile. Initial blood pressure was 172/78 with a pulse of 102. Telemetry shows sinus rhythm. Head: Normocephalic. Left craniotomy scar in the left parietal head region. No carotid bruits. Lungs clear to auscultation. Cardiac: Regular rate and rhythm. S1, S2 present. No edema in the lower extremities. Good pedal pulses. NEUROLOGIC EXAMINATION: The patient is alert and oriented with language and speech intact and fluent. No evidence of memory impairment in conversation. Formal memory testing not performed. Mood appears to be mildly restricted but reactive. Language and speech intact and fluent. Cranial nerves: Pupils equally reactive to light and accommodation, without nystagmus. Extraocular movements intact. Visual jefferson intact on confrontation. No facial asymmetry. Sensation intact on the face bilaterally. Tongue midline. Palate raises symmetrically. SCM and shoulder shrug, as well as hearing appear to be intact bilaterally. Motor strength: Mild pronator drift in the left upper extremity. Slight give-way weakness in the left lower extremity. Otherwise 5/5 throughout. Deep tendon reflexes 2+ symmetrically with plantar reflex flexor bilaterally. Tone intact, upper and lower extremities. Sensation: Intact to pinprick, soft touch, and vibration, upper and lower extremities. Coordination: Intact [id number], [id number], rapidly alternating movement. Gait: Deferred due to fatigue, somnolence from medication for MRI (lorazepam). IMAGING STUDIES: As per the history of present illness. Awaiting full final report on MRI. No evidence of acute stroke on diffusion-weighted sequences. No evidence of hemorrhage on CT or MRI. Laboratories as above. 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 The patient had a similar prodrome of tingling on the top of her head before falling with a syncopal event three weeks ago. Then, she was found to have a small subarachnoid hemorrhage which has resolved by current imaging. At that time, she was hypokalemic which was thought to be related to her chlorthalidone. However, the chlorthalidone was discontinued and today again she presents with low potassium. Levetiracetam was discontinued after her last event. EEG done at [facility] showed slowing over the area of encephalomalacia but no epileptiform abnormalities. It is possible that the patient's head tingling on her head was an aura prior to the onset of seizure. The fact that the tingling occurred though before the syncopal event suggests that may have been a different etiology and her seizure occurs in the context of discontinuing levetiracetam and low potassium. Low potassium can cause cardiac arrhythmia. The etiology of the patient's low potassium has yet to be determined. Symptomatic seizure could be caused by low potassium but seems less likely. I agree with continuing levetiracetam, which is not known to cause hypokalemia. I defer to the hospitalist for determining the etiology of the patient's low potassium but do recommend cardiac monitoring for arrhythmia. Levetiracetam was increased to a 1000 mg two times daily which she appears to tolerate. I will plan to follow with you. Thank you for this consultation. Cc: Johnnie Sullivan MD, [facility], [facility]/Neurosurgery. Didier Doss MD [facility]PITALJazmine
[2017-01-06] MEDS ORDERED: 0.9% Sodium Chloride 250 ML ONE ×2 (21:20→23:01)
--- NOTE | 2017-01-06 22:00 | NUR ---
Admit note Pt arrived to [facility] on day shift per day RN. Pt on tele. IV potassium infusing. Pt has not gotten up and out of bed, using bedpan with 1 person assist. Left licensed aircraft maintenance engineer weakness, forgetful, baseline per pt. C/O generalized weakness. Call light within reach, frequent rounding.
[2017-01-06] MEDS: levETIRAcetam Inj 1,000 MG in IV Premix 1 EACH IV SCH (23:03)
[2017-01-07] MEDS ORDERED: Potassium Chloride 20 mEq SR Tablet PO ONE (00:05)
[2017-01-07 00:42] VITALS: BP 114/71; PULSE 66; RESP 16; O2SAT 95
[2017-01-07 05:28] VITALS: BP 143/68; PULSE 68; RESP 16; O2SAT 97
--- NOTE | 2017-01-07 05:45 | NUR ---
IV potassium Pt's arm became painful while receiving IV potassium. Rate decreased, NS running concurrent. Pt continues to state pain. IV therapy in to place new IV. Pt continues to state pain while potassium infusing, pt also becoming anxious. notified, orders to stop IV K+ and give PO.
[2017-01-07 06:21] LABS: BASOPHILS % (AUTO) 0.5 % (0-3); EOSINOPHILS % (AUTO) 1.7 % (0-5); MONOCYTES % (AUTO) 9.9 % (4-12); Mean Corpuscular Hemoglobin 28.6 pg (27.0-35.0); Mean Corpuscular Volume 84.6 fL (81-100); NEUTROPHILS % (AUTO) 60.9 % (40-74); Platelet Count 281 bil/L (150-400)
[2017-01-07] MEDS: levETIRAcetam Inj 1,000 MG in IV Premix 1 EACH IV SCH (10:02)
[2017-01-07 10:25] VITALS: PULSE 62
[2017-01-07 11:48] VITALS: BP 143/84; PULSE 78; RESP 18; O2SAT 96
--- NOTE | 2017-01-07 12:26 | NUR ---
Case Management- CASTELAN explained and signed/dated/timed. Copy given to patient and orginal placed in chart. Zita MOSES RN
--- NOTE | 2017-01-07 13:23 | PROG NOTE ---
[address] [address] PROGRESS NOTE PATIENT: MARIANO HANNA : 1945 MR#: [id number] ADMIT: 01/06/2017 JOB ID: [id number] DATE: 01/07/2017 REQUESTING PHYSICIAN: Dr. Cotton. SUBJECTIVE: The patient is a 71-year-old female with a witnessed seizure after tapering off of levetiracetam. This was in the context of a previous intracranial hemorrhage related to a ruptured aneurysm, recent subdural hematoma after a fall, and hypokalemia. The hypokalemia has been resolved. It appears that the chlorthalidone had not been discontinued and is likely the cause for the patient's low potassium. The patient is tolerating levetiracetam, which was loaded yesterday. Her two sisters are at the bedside and had several questions regarding her seizures, medications, and potassium levels. All of their questions were answered to the best of my ability. I advised him that the patient will be following up with me as an outpatient and I plan to keep her on levetiracetam 1000 mg two times daily unless there are any issues or questions regarding this treatment. Her past medical history, social history, family history, and drug allergies are otherwise unchanged except as noted in the history of present illness from the original consultation note dated January 06, 2017. REVIEW OF SYSTEMS: As above. The patient has no new complaints. All other systems were reviewed and reported as negative. MEDICATIONS: 1. Levetiracetam 1000 mg b.i.d. 2. Fluoxetine. 3. Nortriptyline. OBJECTIVE: Vital signs: Blood pressure mildly elevated 143/84, pulse 78, respiratory rate 18. Temperature: Afebrile. Pulse oximetry 96% on room air. Head: Normocephalic. Left head scar as noted previously. Lungs: Clear to auscultation. Cardiac: Regular rate and rhythm, telemetry notes sinus normal sinus rhythm. Lower extremities: No edema. NEUROLOGIC EXAMINATION: The patient is alert and recalls my name. Formal memory testing not performed. She is interactive, with language and speech intact and fluent. Cranial nerves: Pupils equally reactive to light and accommodation. No facial asymmetry. Sensation intact. Motor strength: Intact upper and lower extremities. Deep tendon reflexes: 2+ throughout. Plantar reflexes flexor. Tone: Intact. Sensation: Intact to touch all four extremities. Coordination: No dysmetria appreciated. Gait: Not requested. LABORATORY STUDIES: Glucose 101. Chemistry otherwise within normal limits. Potassium now 3.9. CBC within normal limits. ASSESSMENT AND RECOMMENDATION: The patient is a 71-year-old female with new onset seizures following discontinuation of levetiracetam. Levetiracetam has been restarted and increased to 1000 mg two times daily. She appears to be tolerating this dose. Over half of this 30-minute visit was spent answering questions from the patient's sisters. I will sign off for now, but plan to see her as an outpatient. She should be continued on 1000 mg Levetiracetam b.i.d. with the levels checked in two weeks. Thank you for this consultation. Please call if needed.
[2017-01-07 13:31] VITALS: BP 145/77; PULSE 76; RESP 18; O2SAT 97
--- NOTE | 2017-01-07 14:44 | NUR ---
Called Medical Records at [facility] and patient had stay from 12/13/16-12/15/16 this is not a qualifying stay. Updated APPLIANCE SALES ASSOCIATE
[2017-01-07] MEDS ORDERED: LEVE100014 PO (15:04)
--- NOTE | 2017-01-07 15:10 | PCM.DIMED ---
Discharge Instructions Date of Service Jan 07, 2017 Dates of Hospitalization Jan 06, 2017 at 13:41 Discharge Diagnosis Discharge Diagnosis 1. Probable seizure activity 2. Hypokalemia 3. Bilateral leg cramping, worse in the left leg 4. History of traumatic subarachnoid hemorrhage 5. History of brain aneurysm and right-side ischemia 6. Hypertension 7. Depression and anxiety 8. Hyperlipidemia Diet Heart Healthy Activity Home Health Phyical Therapy Patient Instructions Continue with physical therapy and nursing to check vital signs with home health services. Stop taking chlorthalidone. Continue amlodipine and the potassium supplement as previously prescribed. Follow up with your primary care provider in 1 week to recheck your blood pressure and make changes as needed. Follow up BMP to recheck your potassium level in 1 week. Continued on 1000 mg Levetiracetam twice per day with the levetiracetam level checked in two weeks. Follow up with Dr. Stanley. Her office will contact you with a follow up appointment. Follow-up Provider: Didier Doss MD Follow-up with PCP in: 1 week Provider: Bhargavi Stanley MD Follow-up in: Bailey Moreno DO Jan 07, 2017 15:10
--- NOTE | 2017-01-07 15:18 | NUR ---
Social Work-initial assessment/discharge: Data:See initial assessment. Pt is a 71 y/o female who was admitted on 01/06/17 for seizure per H&P. Pt's insurance is [facility] and [employer] and PCP is Didier Doss MD. EMR reviewed. Pt's readmission score is 3. SW met with pt at bedside to discuss to discharge planning, SW role explained. Pt is alert and oriented x3. Pt resides at home with her where she remains independent with ADls. Pt's sister in law Sofya [phone] assists with pt's care at home. Pt uses a fww at baseline and does not drive. Pt has no HH history, but has been to [facility] in the past. Pt has no custodial care insurance or VA benefits. SW discussed DPOA/ advanced directive, pt states she has completed this and SW encouraged a copy to be brought into the hospital. PT saw pt today and is recommending SNF. NOREEN discussed with pt and informed pt because she is under obs status, [facility] will not pay for SNF. NOREEN explained that if pt were able to pay privately for SNF then she would be able to go. Pt states she cannot pay privately for SNF. Pt did ambulate 35ft with fww. Pt states she had a recent stay at [facility], UR specialist called [facility] and confirmed that pt was only there for 2 days. NOREEN discussed HH with pt, HH choice list provided, pt has no agency preference. NOREEN referred to rotating calendar and made referral to [facility] for RN,PT,OT,ST, and TRAVELING PASSENGER AGENT, access given. NOREEN also provided F2F and [facility]. NOREEN spoke with pt's sister in law Sofya to discuss plan. NOREEN explained recommendation of SNF, but under obs insurance will not cover this and only two day stay at [facility]. Sister in law agreeable for pt to return home with HH services. Sofya states she is able to assist at home. Sofya states she will provide transport home today. NOREEN provided RN with phone number to call Sofya when pt is ready. All updated and agreeable to plan. Assessment:pt who would benefit from HH. Plan:Pt to discharge home with support from family today via POV. Pt is not able to pay privately for SNF,due to be obs, and will return home with HH services. F2F and orders given to [facility] for RN,PT,OT,ST, and TRAVELING PASSENGER AGENT. All updated and agreeable to plan. GLEN Rajput Addendum: 01/07/17 at 1534 by MELISSA BARGER SS Amended: Links added. Addendum: 01/07/17 at 1616 by MELISSA BARGER SS SW provided sister in law with senior resources guidebook and explained that TRAVELING PASSENGER AGENT has also been added to services. All updated and agreeable to plan. LGEN Rajput
--- NOTE | 2017-01-07 15:53 | NUR ---
Evaluation completed. Please go to "Notes" then click on "Assessments and Notes" (bottom left corner of screen). Then select appropriate discipline tab on top of screen.
--- NOTE | 2017-01-07 16:30 | NUR ---
spiritual care: pt request brief conversational visit. pt requested prayer and expressed her overwhelm at string of medical events "i want it to be over" participated in prayer. will follow
--- NOTE | 2017-01-07 16:34 | NUR ---
Discharge Pt discharge with sister home via private vehicle. Pt's sister and pt verbalized understanding of discharge and Rx instructions, personal belongings accounted for and left with pt.
[2017-01-07] MEDS ORDERED: levETIRAcetam 500 mg Tablet PO SCH (20:30)
--- NOTE | 2017-01-08 09:50 | PCM.DC.MED ---
Discharge Summary Date of Service Jan 08, 2017 Dates of Hospitalization Date of Hospital Admission Jan 06, 2017 at 13:41 Date of Discharge: Jan 07, 2017 Providers: Admitting Physician: Hugo Calvert Primary Care Physician: Didier Doss MD Attending Physician: Hugo Calvert Diagnosis at Time of Discharge Diagnosis at Time of Discharge 1. Probable seizure activity 2. Hypokalemia 3. Bilateral leg cramping, worse in the left leg 4. History of traumatic subarachnoid hemorrhage 5. History of brain aneurysm and right-side ischemia 6. Hypertension 7. Depression and anxiety 8. Hyperlipidemia Procedures XRay, CTs & MRIs PROCEDURE: CT BRAIN (TPA) IMPRESSION: 1. No acute intracranial abnormalities status post right aneurysm clipping. 2. Large nonacute infarct in the right posterior cerebral artery distribution as before. 3. Mild periventricular and deep white matter chronic small vessel ischemic change. 4. Findings consistent with right maxillary sinusitis, with central hyperdensity consistent with inspissated secretions versus fungal sinusitis. Findings were discussed with Dr. Tai at 1255 hrs on January 06, 2017. This study fulfills neurological imaging criteria for inclusion or exclusion of acute stroke therapies based on available published neurological guidelines. Approved by: Juan Lamb M.D. on 01/06/2017 at 12:56 PROCEDURE: MRI STROKE PROTOCOL IMPRESSION: BRAIN MRI: 1. Limited examination secondary to motion artifact and metallic susceptibility artifact. 2. Large nonacute infarct in the right posterior cerebral artery distribution as before. 3. Asymmetric right maxillary sinus opacification with expansion of the ostiomeatal complex, consistent with antrochoanal polyp. BRAIN MR ANGIOGRAM: 1. Asymmetric occlusion of the right posterior cerebral artery corresponds with large nonacute infarct. 2. Portions of the right cavernous internal carotid artery obscured by nearby aneurysm clip artifact. NECK MR ANGIOGRAM: 1. No hemodynamically significant lesions identified of the extracranial neck vasculature. 2. 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 Consider further evaluation with nonemergent pre-and post contrast cervical spine MRI when clinically feasible. The estimate of stenosis included in the report of the imaging study was calculated using the NASCET method Approved by: Juan Lamb M.D. on 01/06/2017 at 19:41 PROCEDURE: US VENOUS LEG DUPLEX BILATERAL IMPRESSION: No deep venous thrombosis identified within either the left or right lower extremities. Incidental finding of right popliteal Manriquez's cyst measuring roughly 32 mm Dictated by: Vahe Rose RRA Interpreted: Philomena Merrill MD on 01/06/2017 at 16: 44 Transcribed by: OBEY on 01/06/2017 at 16:44 ECG 12 Lead Sinus rhythm, no concerning ST segment changes Brief History From the history and physical performed by Dr. Bailey Cotton on 01/06/2017: Ms. Jessy Weston is a 71-year-old female with history of hypertension, hyperlipidemia, brain aneurysm status post catheterization and right MCA ischemic stroke, and traumatic subarachnoid hemorrhage who presented to the emergency department via EMS after she felt tingling on the top of her head and her witnessed her having a "seizure." Patient states that this morning after she brushed her teeth and washed her face she could feel a tingling on the top of her head, which is exactly what happened prior to her fall 3 weeks ago, so she decided to lower herself to the floor in order to avoid falling a second time. The next thing that she remembers is waking up to her saying her name and seeing the administrative aide in the ambulance. She also states that last night her left calf was cramping and she describes it as her left leg swelling and being "hard" and feeling "like something pushes against my muscle. " Prior to her fall 3 weeks ago, she said she felt the pain in her leg as well. Her states that he had been in to find the patient on the ground with her eyes rolled back, her whole body was shaking, and she was unresponsive. She did not have bowel or bladder incontinence. She did not hit her head. He reports that the patient has not had a seizure before. She was started on anti-epileptic medication to prevent her having seizures after the initial brain aneurysm and ischemic stroke. She started weaning off of Keppra and took her last dose on Thursday. She reports urinary frequency and depression and anxiety. She reports since the initial brain aneurysm that she cries easily. She does not have headache, dizziness, changes in her vision, dysphagia, chest pain, shortness of breath, cough, nausea, vomiting, abdominal pain, dysuria, diarrhea, constipation, or hematochezia or melena. In September 2015, she collapsed and was unresponsive, and she ended up going to [facility]. She had a brain aneurysm. Her reports that when she was in surgery for the brain aneurysm the surgeon had clipped the artery beneath the bleeding artery, which caused the ischemic right-sided stroke. She was then in the intensive care unit for 5 weeks, and then stayed in a care facility for 5 months for continued rehabilitation. The patient's baseline is walking with a walker, mild left sided weakness, and being partially blind. She has lost her left visual field completely and spots of her right visual field. Since the initial brain aneurysm and stroke, she has had one TIA. Three weeks ago, she fell and hit her head face first off of the wall. She came here to the emergency department where a minor subarachnoid hemorrhage was visualized, and she was sent to [facility]. She was there for a few days where they monitored the hemorrhage, but she did not undergo any intervention. In the emergency department, CT scan showed no acute intracranial changes. She is not a candidate for TPA because of her head trauma within the last 90 days. Her NIH stroke scale score was 3. She was given a loading dose of 1000 mg of IV Keppra. Her potassium was low at 2.7. She was given 10 mEq of potassium chloride IV. Dr. Stanley was consulted. Hospital Course Ms. Jessy Weston is a 71-year-old female with history of hypertension, hyperlipidemia, brain aneurysm status post catheterization and right MCA ischemic stroke, and traumatic subarachnoid hemorrhage who presented to the emergency department via EMS after she felt tingling on the top of her head and her witnessed her having a "seizure." 1. Seizure disorder, acute, present on admission. Active. -Patient's reported seizure-like episode and patient stopped taking Keppra on Thursday morning. -Likely a seizure disorder secondary to previous brain aneurysm and ischemia in combination with hypokalemia. -Patient did not have a headache or neck pain. She did not have a fever or an elevated WBC. Her magnesium, sodium, and TSH were within normal limits. Glucose was only mildly elevated. She did not have any episodes of oxygen desaturation. -CT scan and MRI stroke protocol did not show any acute intracranial changes -Patient was given a loading dose of Keppra 1000 mg IV in the emergency department -Held home anti-hypertensives -PT, OT, and ST evaluations ordered. Their time and recommendations were appreciated. -Neurology consulted and following. Her time and recommendations were appreciated. -Keppra 1000 mg BID until patient is seen by Dr. Stanley in follow up. She will need a Keppra level in 2 weeks. -Continue with home health services for nursing and physical therapy. 2. Hypokalemia, acute, present on admission. Improved. -Potassium 2.7 in the emergency department and replenished. Potassium 3.9 on day of discharge. -Magnesium within normal limits -Stopped chlorthalidone. Continued potassium chloride 10 meq once daily. Recommend repeat BMP and follow up with primary care provider. 3. Bilateral leg cramping, worse in the left leg, recurrent, present on admission. Active. -Likely related to potassium level above -US duplex venous did not show DVT but incidental finding of Manriquez's cyst on the right -Acetaminophen as needed for pain 4. History of traumatic subarachnoid hemorrhage -Patient and her report a fall 3 weeks ago that lead to a small subarachnoid hemorrhage. She experienced similar symptoms to prior to today's episode. -She did not receive any intervention 5. History of brain aneurysm and right MCA ischemia -S/p clip placement in September 2015 6. Hypertension, chronic. -Resumed amlodipine 5 mg once daily -Stopped chlorthalidone secondary to hypokalemia as above. Reassess and consider possibly adding an additional anti-hypertensive if patient is hypertensive without chlorthalidone. Her blood pressure was in 140s/80s while in the setting of the hospital and without either amlodipine or chlorthalidone. 7. Depression and anxiety, chronic. -Continued patient's home fluoxetine and nortriptyline 8. Hyperlipidemia, chronic. -Patient was not taking any medication for hyperlipidemia at home Exam Vital Signs (Last) Date Time Temp Pulse Resp B/P Pulse Ox O2 Delivery O2 Flow Rate FiO2 01/07/17 13:31 35.7 76 18 145/77 97 Room Air Exam General: No acute distress, well-developed, well-nourished, appropriately interactive HEENT: Subtle right droop at corner of mouth (reported as chronic). Normocephalic, atraumatic. External ears without defect. Anicteric sclerae, moist conjunctivae, and no lid lag. Oropharynx with moist mucosa. Tongue is midline. Neck: Supple with full range of motion. . Cardiovascular: Regular rate and rhythm with no murmurs, rubs, or gallops appreciated Pulmonary: Clear to auscultation bilaterally with no crackles, wheezes, or rhonchi. Normal respiratory effort with no use of accessory muscles. Abdomen: Bowel tones present. Soft, nontender, nondistended. No hepatosplenomegaly or masses appreciated. Extremities: No clubbing, cyanosis, edema, or lymphadenopathy appreciated. Skin: Normal temperature, turgor, and texture; no rash, ulcers, or subcutaneous nodules appreciated. Neurological: Cranial nerves grossly intact. Normal tone and bulk. Normal muscle strength 5/5 bilateral upper extremity and right lower extremity. 4/5 muscle strength left lower extremity (reported as chronic). No known gait impairment. Psychiatric: Normal mood and affect. Alert and oriented to person and place. Test 01/06/17 12:25 01/06/17 16:55 01/07/17 05:35 Prothrombin Time 10.0sec (8.1-12.5) Prothromb Time International Ratio 0.94ratio Activated Partial Thromboplast Time 24.3sec (22.8-33.0) Hemoglobin A1c 5.8% (4.8-5.6) Magnesium Level 2.1mg/dL (1.6-2.6) Troponin T < 0.010ug/L (0.0-0.011) Thyroid Stimulating Hormone (TSH) 1.580uIU/mL (0.450-4.500) Urine Color Yellow (YELLOW) Urine Appearance Clear (CLEAR,HAZY) Urine pH 7.5 (5.0-8.0) Urine Specific [place] 1.020 (1.003-1.035) Urine Protein Tracemg/dL (NEG,TRACE) Urine Glucose (UA) Negativemg/dL (NEGATIVE) Urine Ketones Negativemg/dL (NEGATIVE) Urine Occult Blood Negative (NEGATIVE) Urine Nitrite Negative (NEGATIVE) Urine Bilirubin Negative (NEGATIVE) Urine Urobilinogen Normalmg/dL (NORMAL) Urine Leukocyte Esterase Negative (NEGATIVE) Urine RBC 0-2/hpf (0-2) Urine WBC 0-5/hpf (0-5) Urine Epithelial Cells Moderate/hpf (NONE-MOD) Urine Crystals None seen (NONE SEEN) Urine Bacteria Few/hpf (NONE-FEW) Urine Hyaline Casts None/lpf (NONE) Urine Granular Casts None seen (NONE SEEN) Urine Waxy Casts None seen (NONE SEEN) Urine Red Blood Cell Casts None seen (NONE SEEN) Urine White Blood Cell Casts None seen (NONE SEEN) Urine Mucus None seen (None Seen) Urine Trichomonas None seen (NONE SEEN) Urine Yeast None (NONE SEEN) Urinalysis Comment None Urine Culture Reflexed Not indicated White Blood Count 6.6th/mm3 (3.8-10.1) Red Blood Count 5.07mil/mm3 (3.90-5.20) Hemoglobin 14.5g/dL (12.0-15.6) Hematocrit 42.9% (35.0-46.0) Mean Corpuscular Volume 84.6fL (81-100) Mean Corpuscular Hemoglobin 28.6pg (27.0-35.0) Mean Corpuscular Hemoglobin Concent 33.8% (32.0-37.0) Red Cell Distribution Width 12.7% (12.3-15.4) Platelet Count 281bil/L (150-400) Neutrophils (%) (Auto) 60.9% (40-74) Lymphocytes (%) (Auto) 26.7% (14-46) Monocytes (%) (Auto) 9.9% (4-12) Eosinophils (%) (Auto) 1.7% (0-5) Basophils (%) (Auto) 0.5% (0-3) Sodium Level 143mEq/L (134-144) Potassium Level 3.9mEq/L (3.5-5.2) Chloride Level 101mEq/L (97-108) Carbon Dioxide Level 28mmol/L (18-29) Blood Urea Nitrogen 10mg/dL (8-27) Creatinine 0.75mg/dL (0.57-1.00) Estimat Glomerular Filtration Rate 109mL/min (>59) Glucose Level 101mg/dL (60-99) Calcium Level 9.5mg/dL (8.5-10.1) Total Bilirubin 0.5mg/dL (0.0-1.2) Aspartate Amino Transf (AST/SGOT) 14U/L (0-50) Alanine Aminotransferase (ALT/SGPT) 15U/L (0-32) Alkaline Phosphatase 117U/L (25-165) Total Protein 6.5g/dL (6.4-8.4) Albumin 4.1g/dL (3.4-5.0) Discharge Medications Discharge Medications Amlodipine (Amlodipine) 5 Mg Tablet 5 MG PO DAILY (Reported) Fluoxetine (Fluoxetine) 10 Mg Capsule 10 MG PO HS (Reported) Levetiracetam (Keppra) 1,000 Mg Tablet 1,000 MG PO BID Prescribed by: BAILEY COTTON DO Nortriptyline (Nortriptyline) 10 Mg Capsule 10 MG PO HS (Reported) Potassium Chloride (Potassium Chloride) 10 Meq Capsule.er 10 MEQ PO DAILY ( Reported) As needed Acetaminophen (Acetaminophen) 500 Mg Tablet 500-1,000 MG PO DAILY PRN PRN For Pain (Reported) Followup Plan Discharge Diet: Heart Healthy Discharge Activity: Home Health Phyical Therapy Patient Instructions Continue with physical therapy and nursing to check vital signs with home health services. Stop taking chlorthalidone. Continue amlodipine and the potassium supplement as previously prescribed. Follow up with your primary care provider in 1 week to recheck your blood pressure and make changes as needed. Follow up BMP to recheck your potassium level in 1 week. Continued on 1000 mg Levetiracetam twice per day with the levetiracetam level checked in two weeks. Follow up with Dr. Stanley. Her office will contact you with a follow up appointment. Follow-up Provider: Didier Doss MD Follow-up with PCP in: 1 week Provider: Bhargavi Stanley MD Follow-up in: Other Time spent 35 min Attending Statement The patient was seen and examined together with Resident / House-staff on and I agree with the history, exam and plan as outlined in the note above. copies to: Bhargavi Stanley MD; Didier Doss MD, Marissa L DO Jan 08, 2017 08:42 Hugo Calvert Jan 08, 2017 17:22
== END 2017-01-07 16:38 | disposition home or self-care (01) ==
LOC: SED 12:34 → MPC 13:41
PROVIDERS: ADMIT Internal Medicine; ATTEND Internal Medicine
DX: R56.9 Unspecified convulsions (principal); E87.6 Hypokalemia; R25.2 Cramp and spasm; I10 Essential (primary) hypertension; F41.8 Other specified anxiety disorders; E78.5 Hyperlipidemia, unspecified; I69.952 Hemiplegia and hemiparesis following unspecified cerebrovascular disease affecting left dominant side; K25.9 Gastric ulcer, unspecified as acute or chronic, without hemorrhage or perforation; J45.909 Unspecified asthma, uncomplicated; E55.9 Vitamin D deficiency, unspecified; K75.81 Nonalcoholic steatohepatitis (NASH)
CPT/HCPCS: 36415; 70450; 70549; 70553; 80048; 80053; 81000; 82948; 83036; 83735; 84443; 84484; 85025; 85610; 85730; 92610; 93005; 93970; 96374; 96376; 97162; 97166; 99291; 99292; A9585; G0378; G8978; G8979; G8996; G8997; J1953; J2060; J3480; J7050